=== PATIENT | male | born 1965 | race Caucasian/White ===

== ENCOUNTER 2023-06-15 08:33 | Observation (INO) | payer OTHER ==
[2023-06-15] MEDS ORDERED: Ketorolac 30 MG/ML SDV IVPUSH ONE (09:11)
[2023-06-15] MEDS ORDERED: Baclofen 10 MG Tab PO ONE (09:11)
[2023-06-15] MEDS ORDERED: predniSONE 20 MG Tab PO ONE (10:25)
[2023-06-15 10:39] LABS: BASOPHILS ABSOLUTE AUTO 0.03 K/uL (0.00-0.10); BASOPHILS PERCENT AUTO 0.4 % (0.1-1.3); EOSINOPHILS PERCENT AUTO 0.2 % (0.0-5.4); HEMATOCRIT 44.9 % (38.4-49.7); HEMOGLOBIN 15.1 g/dL (12.9-16.9); IMMATURE GRAN PERCENT AUTO 0.2 % (0.0-0.7); LYMPHOCYTES ABSOLUTE AUTO 0.63 K/uL (0.8-3.3); LYMPHOCYTES PERCENT AUTO 7.8 % (11.4-47.7); MEAN CORPUSCULAR HEMOGLOBIN 27.8 pg (31.6-35.5); MEAN CORPUSCULAR HGB CONC 33.6 g/dL (31.6-35.5); MEAN CORPUSCULAR VOLUME 82.7 fL (81.4-99.0); MONOCYTES ABSOLUTE AUTO 0.37 K/uL (0.20-0.90); MONOCYTES PERCENT AUTO 4.6 % (3.3-12.6); NEUTROPHILS PERCENT AUTO 86.8 % (40.0-78.1); PLATELET COUNT,PLT 189 K/uL (130-375); RED BLOOD CELL COUNT 5.43 M/uL (4.14-5.76); WHITE BLOOD CELL COUNT,WBC 8.1 K/uL (3.2-11.0)
[2023-06-15 10:40] LABS: EOSINOPHILS ABSOLUTE AUTO 0.02 K/uL (0.00-0.40); IMMATURE GRAN ABSOLUTE AUTO 0.02 K/uL (0.00-0.23)
[2023-06-15 10:55] LABS: CALCIUM 8.6 mg/dL (8.5-10.1); CREATININE 1.3 mg/dL (0.8-1.3); EST CRCL DRUG DOSING (CG) 59.92 mL/min; POTASSIUM,K 4.5 mmol/L (3.6-5.2)
[2023-06-15 10:56] LABS: ANION GAP 11.5 mmol/L (5.0-14.0)
[2023-06-15] MEDS ORDERED: Midazolam 1 MG/ML 5 ML SDV IVPUSH ONE (11:58)
[2023-06-15] MEDS ORDERED: HYDROmorphone 1 MG/ML Syringe IVPUSH ONE (11:59)
[2023-06-15] MEDS ORDERED: Trolamine Salicylate/Aloe Vera 10% Crm 85 GM Tube TOP PRN (18:42)
[2023-06-15] MEDS ORDERED: LORazepam 2 MG/ML SDV IVPUSH PRN (18:42)
[2023-06-15] MEDS ORDERED: Sennosides/Docusate Sodium 50-8.6 MG Tab PO PRN (18:42)
[2023-06-15] MEDS ORDERED: Ondansetron 4 MG Tab.DIS PO PRN (18:42)
[2023-06-15] MEDS ORDERED: HYDROmorphone 1 MG/ML Syringe IVPUSH PRN (18:42)
[2023-06-15] MEDS ORDERED: Magnesium Hydroxide 400 MG/5 ML Susp 30 ML Cup PO PRN (18:42)
[2023-06-15] MEDS ORDERED: Naloxone 0.4 MG/ML SDV IVPUSH PRN (18:42)
[2023-06-15] MEDS ORDERED: Ondansetron 4 MG/2 ML SDV IV PRN (18:42)
[2023-06-15] MEDS: tiZANidine 2 MG Tab PO PRN (18:57)
[2023-06-15] MEDS: Ketorolac 30 MG/ML SDV IM PRN (18:58)
[2023-06-15] MEDS: HYDROmorphone 2 MG Tab PO PRN ×2 (19:41→23:55)
[2023-06-16] MEDS: tiZANidine 2 MG Tab PO PRN ×3 (01:08→14:02)
[2023-06-16] MEDS: Ketorolac 30 MG/ML SDV IM PRN ×2 (01:08→08:06)
[2023-06-16] MEDS: HYDROmorphone 2 MG Tab PO PRN ×3 (04:23→16:57)
[2023-06-16] MEDS ORDERED: Levothyroxine 100 MCG Tab PO SCH ×2 (07:30→09:00)
[2023-06-16] MEDS ORDERED: Dexamethasone 2 MG Tab PO ONE (10:03)
[2023-06-16] MEDS ORDERED: Ketorolac 30 MG/ML SDV IVPUSH PRN (14:00)
== END 2023-06-16 17:30 | disposition home or self-care (01) ==
LOC: JP.ED 08:33 → JP.2SS 17:58
PROVIDERS: ADMIT Internal Medicine; ATTEND Internal Medicine
DX: M54.50 Low back pain, unspecified (principal); R09.02 Hypoxemia; M62.830 Muscle spasm of back; E03.9 Hypothyroidism, unspecified; Z79.890 Hormone replacement therapy; Z79.899 Other long term (current) drug therapy
CPT/HCPCS: 36415; 80048; 83735; 85025; 96372; 96374; 96375; 96376; 97110-GP; 97116-GP; 97162-GP; 97535-GP; 99222; 99238; 99285-25; A9270-GY; G0378; J1170; J1885; J2250; J7512; J8540; U0002